=== PATIENT | male | born 1965 | race Caucasian/White ===

== ENCOUNTER → 2022-02-22 10:44 | Outpatient (BNVA) | payer MEDICARE, MEDICAID, SELFPAY | PROVIDERS: PCP Internal Medicine; Visit Provider Student in an Organized Health Care Education/Training Program | DX: M05.9 Rheumatoid arthritis with rheumatoid factor, unspecified (principal); E11.9 Type 2 diabetes mellitus without complications; J43.9 Emphysema, unspecified; C25.9 Malignant neoplasm of pancreas, unspecified; Z79.52 Long term (current) use of systemic steroids; Z79.899 Other long term (current) drug therapy; Z11.7 Encounter for testing for latent tuberculosis infection; Z11.59 Encounter for screening for other viral diseases | CPT/HCPCS: 36415; 80053; 83036; 85007; 85027; 85652; 86140; 86200; 86431; 86481; 86704; 86706; 86709; 86803; 87340; 99212 ==

== ENCOUNTER 2022-02-22 12:28 | Outpatient (REF) | payer MEDICARE, MEDICAID, SELFPAY ==
[2022-02-22 14:01] LABS: Hematocrit 37.5 % (42.0-52.0); Hemoglobin 11.3 g/dl (14.0-18.0); Mean Corpuscular HGB Conc 30.1 g/dl (31.0-36.0); Mean Corpuscular Volume 89.7 fL (80.0-98.0); Mean Platelet Volume 11.1 fL (9.4-12.4); Platelet Count 213 X10*3/uL (160-400); Red Blood Count 4.18 X10*6/uL (4.60-5.80); Red Cell Distribution Width 17.2 % (11.0-16.0); White Blood Count 28.6 X10*3/uL (4.8-10.8)
[2022-02-22 14:23] LABS: Band Neutrophils Percent 1 % (3-5); Monocytes Absolute Manual 0.9 X10*3/uL (0.1-1.2); Monocytes Percent Manual 3 % (2-11); Neutrophils Absolute Manual 27.7 X10*3/uL (2.0-8.3); Neutrophils Percent Manual 96 % (45-73)
[2022-02-22 14:24] LABS: Platelet Estimate NORMAL (NORMAL); Toxic Granulation PRESENT
[2022-02-22 14:25] LABS: Hypochromasia 1+ (5-14) /OIF; Platelet Morphology Comment NORMAL; RBC Morphology NOTED
[2022-02-22 14:40] LABS: Estimated Average Glucose 126 mg/dL; Hemoglobin A1C 125.4596 umol/L
[2022-02-22 14:49] LABS: Erythrocyte Sedimentation Rate 50 MM/HR (0-15)
[2022-02-22 14:51] LABS: Alanine Aminotransferase 39 U/L (0-40); Albumin Level 2.4 g/dL (3.5-5.0); Alkaline Phosphatase 208 U/L (39-117); Anion Gap 16 (12-20); Aspartate Amino Transferase 56 U/L (5-37); Blood Urea Nitrogen 9 mg/dL (9-16); C Reactive Protein 2.85 mg/dL (< or = 0.50); Calcium 7.9 mg/dL (8.4-10.2); Carbon Dioxide 28 mmol/L (22-29); Chloride 101 mmol/L (96-108); Estimated Glomerular Filt Rate > 60; Glucose Random 97 mg/dL (60-115); Potassium 4.7 mmol/L (3.3-5.1); Sodium 140 mmol/L (135-145); Total Protein 5.9 g/dL (6.5-8.0)
[2022-02-22 15:26] LABS: Bilirubin Total 0.2 mg/dL (0.0-1.0)
[2022-02-23 08:59] LABS: HBS Num1 1.14 mIU/mL (0-7.99); HBsAGNum1 0.39 S/CO (0.00-0.99); Hepatitis B Core Antibody Nonreactive (Nonreactive); Hepatitis B Surface Antigen Negative (Negative); ~HepC Num1 1.72 S/CO (0.00-0.79); ~Hepatitis B Surface Antibody NONREACTIVE (Nonreactive); ~Hepatitis C Antibody Reactive (Nonreactive)
[2022-02-24 07:44] LABS: Hepatitis A Antibody IgM 0.09 Index (0-0.79); ~Hepatitis A Antibody IgM Nonreactive (Nonreactive)
[2022-02-24 17:13] LABS: Cyclic Citrullinated Peptide >250 UNITS
[2022-02-25 03:29] LABS: TS Negative Control Passed; TS Panel A 0; TS Panel B 1; TS Positive Control Passed; TSpotTB Negative (Negative)
== END 2022-02-22 12:29 | disposition home or self-care (01) ==
LOC: HO.10HDL 12:28
PROVIDERS: Visit Provider Student in an Organized Health Care Education/Training Program
DX: Z13.89 Encounter for screening for other disorder (principal)
CPT/HCPCS: 36415; 80053; 83036; 85007; 85025; 85027; 85652; 86140; 86200; 86431; 86481; 86704; 86706; 86709; 86803; 87340